=== PATIENT | male | born 1975 | race Caucasian/White ===

== ENCOUNTER 2016-12-22 10:56 | Inpatient (IN) | payer OTHER ==
[2016-12-22 14:47] VITALS: BMI 25.1
--- NOTE | 2016-12-22 15:57 | HP ---
COWS - Scale Resting Pulse: 0= [place] 80 or Below Sweatin=Flushed/Facial Moisture Restless Observation: 3= Extraneous Movement Pupil Size: 2= Moderately Dilated Bone or Joint Aches: 2= Severe Diffuse Aches Runny Nose/ Eye Tearin= Runny Nose/Eyes GI Upset > 30mins: 3= Vomiting/Diarrhea Tremor Observation: 2= Slight Tremor Visible Yawning Observation: 2= >3x During Session Anxiety or Irritability: 2=Irritable/Anxious Goose Flesh Skin: 0=Smooth Skin COWS Score: 20 Admission ROS BHS - HPI Chief Complaint: I NEED HELP TO STOP USING HEROIN Allergies/Adverse Reactions: Allergies Allergy/AdvReac Type Severity Reaction Status Date / Time No Known Allergies Allergy Verified 12/22/16 15:47 History of Present Illness: THIS 41 YEARS OLD MALE WITH HEROIN DEPENDENCE SEEKING HELP TO STOP USING DRUG, NEVER BEEN IN DETOX BEFORE LOW BACK PAIN, NICOTINE DEPENDENCE Exam Limitations: No Limitations - Ebola screening Have you traveled outside of the country in the last 21 days: No Have you had contact with anyone from an Ebola affected area: No Have you been sick,other than usual withdrawal symptoms: No - Review of Systems Constitutional: Chills, Loss of Appetite, Malaise, Night Sweats, Changes in sleep EENT: reports: Tearing, Nose Congestion Respiratory: reports: No Symptoms reported Cardiac: reports: Palpitations GI: reports: Diarrhea, Nausea, Vomiting, Abdominal cramping : reports: No Symptoms Reported Musculoskeletal: reports: Back Pain, Joint Pain, Muscle Pain, Joint Stiffness Neuro: reports: Headache, Tremors Endocrine: reports: No Symptoms Reported Hematology: reports: No Symptoms Reported Psychiatric: reports: No Sypmtoms Reported, Judgement Intact, Mood/Affect Appropiate, Orientated x3 Other Systems: Reviewed and Negative Patient History - Patient Medical History Hx Anemia: No Hx Asthma: No Hx Chronic Obstructive Pulmonary Disease (COPD): No Hx Cancer: No Hx Cardiac Disorders: No Hx Hypertension: No Hx Hypercholesterolemia: No Hx Pacemaker: No HX Cerebrovascular Accident: No Hx Seizures: No Hx Diabetes: No Hx Gastrointestinal Disorders: Yes (GERD) Hx Liver Disease: No Hx Genitourinary Disorders: No Hx Sexually Transmitted Disorders: No Hx Renal Disease (ESRD): No Hx Thyroid Disease: No Hx Human Immunodeficiency Virus (HIV): No (LAST 2015 NEGATIVE) Hx Hepatitis C: No Hx Depression: No Hx Suicide Attempt: No Hx Bipolar Disorder: No Hx Schizophrenia: No - Patient Surgical History Past Surgical History: No - PPD History Previous Implant?: Yes Documented Results: Negative w/o proof Implanted On Prior [facility] Admission?: No PPD to be Administered?: Yes - Smoking Cessation Smoking history: Current every day smoker Have you smoked in the past 12 months: Yes Aproximately how many cigarettes per day: 40 Hx Chewing Tobacco Use: No Initiated information on smoking cessation: Yes 'Breaking Loose' booklet given: 12/22/16 - Substance & Tx. History Hx Alcohol Use: No Hx Substance Use: Yes Substance Use Type: Heroin Hx Substance Use Treatment: No - Substances Abused Heroin Route: Inhalation Frequency: Daily Amount used: 8 bags Age of first use: 40 Date of Last Use: 12/21/16 Family Disease History - Family Disease History Family History: Denies Admission Physical Exam [facility] - Vital Signs Vital Signs: Vital Signs - 24 hr 12/22/16 14:45 Temperature 97.2 F L Pulse Rate 75 Respiratory 20 Rate Blood Pressure 134/74 - Physical General Appearance: Yes: Moderate Distress, Tremorous, Irritable, Sweating HEENTM: Yes: Normal ENT Inspection, Normocephalic, VIKTOR, Pharynx Normal Respiratory: Yes: Lungs Clear, Normal Breath Sounds, No Respiratory Distress Neck: Yes: Within Normal Limits, Supple, Trachea in good position Breast: Yes: Within Normal Limits Cardiology: Yes: Within Normal Limits, Regular Rhythm, Regular Rate, S1, S2 Abdominal: Yes: Within Normal Limits, Normal Bowel Sounds, Non Tender, Flat, Soft Genitourinary: Yes: Within Normal Limits Back: Yes: Muscle Spasm Musculoskeletal: Yes: full range of Motion, Back pain, Joint Stiffness, Muscle Pain Extremities: Yes: Normal Range of Motion, Tremors Neurological: Yes: chair springer II-XII NML intact, Alert, Motor Strength 5/5 Integumentary: Yes: Dry Lymphatic: Yes: Within Normal Limits - Diagnostic (1) Opioid dependence with withdrawal Current Visit: Yes Status: Acute (2) Low back pain Current Visit: Yes Status: Acute (3) Nicotine dependence Current Visit: Yes Status: Acute Cleared for Admission [facility] - Detox or Rehab [facility] Level of Care: Medically Managed Detox Regimen/Protocol: Methadone [facility] Breath Alcohol Content Breath Alcohol Content: 0 Urine Drug Screen - Results Drug Screen Negative: No Urine Drug Screen Results: OPI-Opiates
[2016-12-22] MEDS ORDERED: MAGNESIUM CITRATE 300 ML BOTTLE PO PRN (16:04)
[2016-12-22] MEDS ORDERED: MAG HYDROX/AL HYDROX/SIMETH 30 ML UNIT-DOSE CUP PO PRN (16:04)
[2016-12-22] MEDS ORDERED: P-EPHED 60MG/TRIPROLIDI 2.5MG TABLET PO PRN (16:04)
[2016-12-22] MEDS ORDERED: IBUPROFEN 400 MG TABLET (FP) PO PRN (16:04)
[2016-12-22] MEDS ORDERED: guaiFENesin/D-METHORPHAN HB 10 ML UNIT-DOSE CUPS PO PRN (16:04)
[2016-12-22] MEDS ORDERED: hydrOXYzine PAMOATE 50 MG CAPSULE (FP) PO PRN (16:04)
[2016-12-22] MEDS ORDERED: ACETAMINOPHEN 325 MG TABLET (FP) PO PRN (16:04)
[2016-12-22] MEDS ORDERED: MENTHOL/PHENOL 1 EACH UD MM PRN (16:04)
[2016-12-22] MEDS ORDERED: LOPERAMIDE HCL 2 MG CAPSULE PO PRN (16:04)
[2016-12-22] MEDS ORDERED: MAGNESIUM HYDROX 2400MG/30ML ORAL SUSPENSION 30 ML CUP PO PRN (16:04)
[2016-12-22] MEDS ORDERED: CYCLOBENZAPRINE HCL 10 MG TABLET (FP) PO PRN (16:07)
[2016-12-22] MEDS ORDERED: METHADONE HCL 10 MG TABLET (FOR DETOX USE ONLY) PO ONE ×2 (17:30→23:00)
[2016-12-22] MEDS: diazePAM 5 MG TABLET PO PRN ×2 (17:44→22:16)
[2016-12-22] MEDS: THIAMINE HCL 100 MG TABLET (FP) PO SCH (22:13)
[2016-12-22] MEDS: cloNIDine HCL 0.1 MG TABLET PO SCH (22:13)
[2016-12-22] MEDS: diphenhydrAMINE HCL 50 MG CAPSULE PO PRN (22:14)
[2016-12-22 22:24] LABS: URINE APPEARANCE CLEAR; URINE BILIRUBIN NEGATIVE (NEGATIVE); URINE BLOOD NEGATIVE (NEGATIVE); URINE COLOR STRAW; URINE GLUCOSE (UA) NEGATIVE (NEGATIVE); URINE KETONE NEGATIVE (NEGATIVE); URINE LEUK ESTERASE NEGATIVE (NEGATIVE); URINE NITRITE NEGATIVE (NEGATIVE); URINE PROTEIN NEGATIVE (NEGATIVE); URINE UROBILINOGEN NEGATIVE E.U./dl (0.2-1.0)
[2016-12-23] MEDS: diazePAM 5 MG TABLET PO PRN ×4 (06:04→22:08)
[2016-12-23] MEDS ORDERED: METHADONE HCL 10 MG TABLET (FOR DETOX USE ONLY) PO ONE (10:00)
[2016-12-23 10:03] LABS: MCH 29.4 pg (25.7-33.7); MCHC 33.4 g/dl (32.0-35.9); MEAN CELL VOLUME 87.9 fl (80-96); MEAN PLT VOLUME 7.8 fl (7.5-11.1); PLATELET COUNT 224 K/MM3 (134-434); RDW 12.5 % (11.9-15.9); WHITE BLOOD COUNT 6.4 K/mm3 (4.0-10.0)
[2016-12-23 10:14] LABS: ALBUMIN 3.5 g/dl (3.4-5.0); ALK PHOS 61 U/L (45-117); ANION GAP 8 (8-16); BILIRUBIN,TOTAL 0.4 mg/dL (0.2-1.0); CALCIUM 9.4 mg/dL (8.5-10.1); CO2 29 mmol/L (21-32); COCKROFT - GAULT 137.81; CREATININE 0.8 mg/dL (0.7-1.3); GLUCOSE,RANDOM 102 mg/dL (74-106); SGOT/AST 13 U/L (15-37); SGPT/ALT 25 U/L (12-78); TOT PROT 6.2 g/dl (6.4-8.2)
[2016-12-23] MEDS: cloNIDine HCL 0.1 MG TABLET PO SCH ×2 (10:23→22:08)
[2016-12-23] MEDS: PRENATAL VITAMINS W/ FOLIC ACID TABLET (FP) PO SCH (10:23)
--- NOTE | 2016-12-23 11:40 | EKG ---
Test Reason : Blood Pressure : / mmHG Vent. Rate : 062 BPM Atrial Rate : 062 BPM P-R Int : 142 ms QRS Dur : 082 ms QT Int : 402 ms P-R-T Axes : 046 060 048 degrees QTc Int : 408 ms NORMAL SINUS RHYTHM NORMAL ECG NO PREVIOUS ECGS AVAILABLE Confirmed by ZACK MARTINEZ, FLORES ([id number]) on 12/23/2016 11:40:38 AM Referred By: Confirmed By:FLORES DIXON MD
--- NOTE | 2016-12-23 11:51 | PN ---
BHS COWS - Scale Resting Pulse: 2= [place] 101-120 Sweatin= Chills/Flushing Restless Observation: 1= Difficult to Sit Still Pupil Size: 0= Normal to Room Light Bone or Joint Aches: 2= Severe Diffuse Aches Runny Nose/ Eye Tearin= Nasal Congestion GI Upset > 30mins: 1= Stomach Cramp Tremor Observation of Outstretched Hands: 2= Slight Tremor Visible Yawning Observation: 1= 1-2x During Session Anxiety or Irritability: 2=Irritable/Anxious Goose Flesh Skin: 3=Piloerection COWS Score: 16 BHS Progress Note (SOAP) Subjective: Body Aches, Fatigue, Tremors. Objective: PT. A & O X 2 (DISORIENTED ABOUT DAY /DATE). NO ACUTE DISTRESS. PT. DENIES CHEST PAIN. 12/23/16 11:49 Vital Signs Temperature 98.3 F 12/23/16 10:04 Pulse Rate 107 H 12/23/16 10:04 Respiratory Rate 18 12/23/16 10:04 Blood Pressure 130/82 12/23/16 10:04 O2 Sat by Pulse Oximetry (%) Laboratory Tests 12/22/16 12/23/16 12/23/16 21:30 07:00 07:00 WBC 6.4 RBC 4.86 Hgb 14.3 Hct 42.7 MCV 87.9 MCHC 33.4 RDW 12.5 Plt Count 224 MPV 7.8 Sodium 141 Potassium 4.5 Chloride 104 Carbon Dioxide 29 Anion Gap 8 BUN 13 Creatinine 0.8 Creat Clearance w eGFR > 60 Random Glucose 102 Calcium 9.4 Total Bilirubin 0.4 AST 13 L ALT 25 Alkaline Phosphatase 61 Total Protein 6.2 L Albumin 3.5 Urine Color Straw Urine Appearance Clear Urine pH 7.0 Urine Protein Negative Urine Glucose (UA) Negative Urine Ketones Negative Urine Blood Negative Urine Nitrite Negative Urine Bilirubin Negative Urine Urobilinogen Negative Ur Leukocyte Esterase Negative LABS NOTED. Assessment: 12/23/16 11:51 WITHDRAWAL SYMPTOMS. Plan: CONTINUE DETOX.
[2016-12-23] MEDS: THIAMINE HCL 100 MG TABLET (FP) PO SCH (22:08)
[2016-12-24] MEDS: diazePAM 5 MG TABLET PO PRN ×2 (05:45→10:05)
[2016-12-24] MEDS ORDERED: METHADONE HCL 5 MG TABLET (FOR DETOX USE ONLY) PO ONE (10:00)
[2016-12-24] MEDS: PRENATAL VITAMINS W/ FOLIC ACID TABLET (FP) PO SCH (10:04)
[2016-12-24] MEDS: cloNIDine HCL 0.1 MG TABLET PO SCH ×2 (10:04→22:42)
--- NOTE | 2016-12-24 13:25 | PN ---
S COWS - Scale Resting Pulse: 1= [place] 81-100 Sweatin= Chills/Flushing Restless Observation: 0= Sits Still Pupil Size: 0= Normal to Room Light Bone or Joint Aches: 2= Severe Diffuse Aches Runny Nose/ Eye Tearin= Runny Nose/Eyes GI Upset > 30mins: 2= Nausea/Diarrhea Tremor Observation of Outstretched Hands: 2= Slight Tremor Visible Yawning Observation: 1= 1-2x During Session Anxiety or Irritability: 2=Irritable/Anxious Goose Flesh Skin: 3=Piloerection COWS Score: 16 S Progress Note (SOAP) Subjective: Diarrhea, Tremors, Body Aches, Sweating. Objective: PT. A & O X 2 (DISORIENTED ABOUT DAY /DATE). PT. OBSERVED AMBULATING ON UNIT. NO ACUTE DISTRESS. 12/24/16 13:23 Vital Signs Temperature 98.6 F 12/24/16 10:03 Pulse Rate 97 H 12/24/16 10:03 Respiratory Rate 20 12/24/16 10:03 Blood Pressure 98/67 12/24/16 10:03 O2 Sat by Pulse Oximetry (%) Laboratory Tests 12/22/16 12/23/16 12/23/16 21:30 07:00 07:00 WBC 6.4 RBC 4.86 Hgb 14.3 Hct 42.7 MCV 87.9 MCHC 33.4 RDW 12.5 Plt Count 224 MPV 7.8 Sodium 141 Potassium 4.5 Chloride 104 Carbon Dioxide 29 Anion Gap 8 BUN 13 Creatinine 0.8 Creat Clearance w eGFR > 60 Random Glucose 102 Calcium 9.4 Total Bilirubin 0.4 AST 13 L ALT 25 Alkaline Phosphatase 61 Total Protein 6.2 L Albumin 3.5 Urine Color Straw Urine Appearance Clear Urine pH 7.0 Ur Specific [place] 1.015 Urine Protein Negative Urine Glucose (UA) Negative Urine Ketones Negative Urine Blood Negative Urine Nitrite Negative Urine Bilirubin Negative Urine Urobilinogen Negative Ur Leukocyte Esterase Negative RPR Titer 12/23/16 07:00 WBC RBC Hgb Hct MCV MCHC RDW Plt Count MPV Sodium Potassium Chloride Carbon Dioxide Anion Gap BUN Creatinine Creat Clearance w eGFR Random Glucose Calcium Total Bilirubin AST ALT Alkaline Phosphatase Total Protein Albumin Urine Color Urine Appearance Urine pH Ur Specific [place] Urine Protein Urine Glucose (UA) Urine Ketones Urine Blood Urine Nitrite Urine Bilirubin Urine Urobilinogen Ur Leukocyte Esterase RPR Titer Nonreactive LABS NOTED. Assessment: 12/24/16 13:25 WITHDRAWAL SYMPTOMS. Plan: CONTINUE DETOX. PRN IMMODIUM FOR DIARRHEA.
[2016-12-24] MEDS: THIAMINE HCL 100 MG TABLET (FP) PO SCH (22:42)
[2016-12-25] MEDS ORDERED: METHADONE HCL 5 MG TABLET (FOR DETOX USE ONLY) PO ONE (10:00)
[2016-12-25] MEDS: cloNIDine HCL 0.1 MG TABLET PO SCH ×2 (10:15→22:13)
[2016-12-25] MEDS: diazePAM 5 MG TABLET PO PRN (10:16)
[2016-12-25] MEDS: PRENATAL VITAMINS W/ FOLIC ACID TABLET (FP) PO SCH (10:16)
--- NOTE | 2016-12-25 11:57 | PN ---
BHS Progress Note (SOAP) Subjective: Body Aches, Diarrhea, Tremors, Interrupted sleep, Sweating. Objective: PT. A & O X 3, OBSERVED AMBULATING ON UNIT. NO ACUTE DISTRESS. 12/25/16 11:56 12/25/16 11:58 Vital Signs Temperature 98.4 F 12/25/16 09:57 Pulse Rate 83 12/25/16 09:57 Respiratory Rate 18 12/25/16 09:57 Blood Pressure 109/66 12/25/16 09:57 O2 Sat by Pulse Oximetry (%) Laboratory Tests 12/22/16 12/23/16 12/23/16 21:30 07:00 07:00 WBC 6.4 RBC 4.86 Hgb 14.3 Hct 42.7 MCV 87.9 MCHC 33.4 RDW 12.5 Plt Count 224 MPV 7.8 Sodium 141 Potassium 4.5 Chloride 104 Carbon Dioxide 29 Anion Gap 8 BUN 13 Creatinine 0.8 Creat Clearance w eGFR > 60 Random Glucose 102 Calcium 9.4 Total Bilirubin 0.4 AST 13 L ALT 25 Alkaline Phosphatase 61 Total Protein 6.2 L Albumin 3.5 Urine Color Straw Urine Appearance Clear Urine pH 7.0 Ur Specific [place] 1.015 Urine Protein Negative Urine Glucose (UA) Negative Urine Ketones Negative Urine Blood Negative Urine Nitrite Negative Urine Bilirubin Negative Urine Urobilinogen Negative Ur Leukocyte Esterase Negative RPR Titer 12/23/16 07:00 WBC RBC Hgb Hct MCV MCHC RDW Plt Count MPV Sodium Potassium Chloride Carbon Dioxide Anion Gap BUN Creatinine Creat Clearance w eGFR Random Glucose Calcium Total Bilirubin AST ALT Alkaline Phosphatase Total Protein Albumin Urine Color Urine Appearance Urine pH Ur Specific [place] Urine Protein Urine Glucose (UA) Urine Ketones Urine Blood Urine Nitrite Urine Bilirubin Urine Urobilinogen Ur Leukocyte Esterase RPR Titer Nonreactive LABS NOTED. Assessment: 12/25/16 11:58 WITHDRAWAL SYMPTOMS. Plan: CONTINUE DETOX.
[2016-12-25] MEDS: diphenhydrAMINE HCL 50 MG CAPSULE PO PRN (22:12)
[2016-12-25] MEDS: THIAMINE HCL 100 MG TABLET (FP) PO SCH (22:12)
[2016-12-26] MEDS ORDERED: METHADONE HCL 10 MG TABLET (FOR DETOX USE ONLY) PO ONE (10:00)
[2016-12-26] MEDS: cloNIDine HCL 0.1 MG TABLET PO SCH ×2 (10:04→22:12)
[2016-12-26] MEDS: PRENATAL VITAMINS W/ FOLIC ACID TABLET (FP) PO SCH (10:04)
--- NOTE | 2016-12-26 14:28 | PN ---
BHS Progress Note (SOAP) Subjective: Fatigue, Body Aches. Objective: PT. A & O X 3. NO ACUTE DISTRESS. 12/26/16 14:26 Vital Signs Temperature 98.6 F 12/26/16 13:03 Pulse Rate 75 12/26/16 13:03 Respiratory Rate 18 12/26/16 13:03 Blood Pressure 94/60 12/26/16 13:03 O2 Sat by Pulse Oximetry (%) Laboratory Tests 12/22/16 12/23/16 12/23/16 21:30 07:00 07:00 WBC 6.4 RBC 4.86 Hgb 14.3 Hct 42.7 MCV 87.9 MCHC 33.4 RDW 12.5 Plt Count 224 MPV 7.8 Sodium 141 Potassium 4.5 Chloride 104 Carbon Dioxide 29 Anion Gap 8 BUN 13 Creatinine 0.8 Creat Clearance w eGFR > 60 Random Glucose 102 Calcium 9.4 Total Bilirubin 0.4 AST 13 L ALT 25 Alkaline Phosphatase 61 Total Protein 6.2 L Albumin 3.5 Urine Color Straw Urine Appearance Clear Urine pH 7.0 Ur Specific [place] 1.015 Urine Protein Negative Urine Glucose (UA) Negative Urine Ketones Negative Urine Blood Negative Urine Nitrite Negative Urine Bilirubin Negative Urine Urobilinogen Negative Ur Leukocyte Esterase Negative RPR Titer 12/23/16 07:00 WBC RBC Hgb Hct MCV MCHC RDW Plt Count MPV Sodium Potassium Chloride Carbon Dioxide Anion Gap BUN Creatinine Creat Clearance w eGFR Random Glucose Calcium Total Bilirubin AST ALT Alkaline Phosphatase Total Protein Albumin Urine Color Urine Appearance Urine pH Ur Specific [place] Urine Protein Urine Glucose (UA) Urine Ketones Urine Blood Urine Nitrite Urine Bilirubin Urine Urobilinogen Ur Leukocyte Esterase RPR Titer Nonreactive LABS NOTED. Assessment: 12/26/16 14:27 WITHDRAWAL SYMPTOMS. Plan: CONTINUE DETOX. INCREASE PO FLUID INTAKE.
[2016-12-26 21:34] VITALS: TEMP 97.1
[2016-12-26] MEDS: THIAMINE HCL 100 MG TABLET (FP) PO SCH (22:11)
[2016-12-26] MEDS: diphenhydrAMINE HCL 50 MG CAPSULE PO PRN (22:12)
[2016-12-27] MEDS ORDERED: METHADONE HCL 5 MG TABLET (FOR DETOX USE ONLY) PO ONE (06:00)
[2016-12-27 06:39] VITALS: BP 101/65; PULSE 82
--- NOTE | 2016-12-27 11:39 | DS ---
[facility] Detox Discharge Summary Admission Date: 12/22/16 Discharge Date: 12/27/16 - History Present History: Opioid Dependence Pertinent Past History: GERD - Physical Exam Results Vital Signs: Vital Signs Temperature 97.1 F L 12/27/16 06:38 Pulse Rate 82 12/27/16 06:38 Respiratory Rate 18 12/27/16 06:38 Blood Pressure 101/65 12/27/16 06:38 O2 Sat by Pulse Oximetry (%) Pertinent Admission Physical Exam Findings: Withdrawal symptoms Laboratory Tests 12/22/16 12/23/16 12/23/16 21:30 07:00 07:00 WBC 6.4 RBC 4.86 Hgb 14.3 Hct 42.7 MCV 87.9 MCHC 33.4 RDW 12.5 Plt Count 224 MPV 7.8 Sodium 141 Potassium 4.5 Chloride 104 Carbon Dioxide 29 Anion Gap 8 BUN 13 Creatinine 0.8 Creat Clearance w eGFR > 60 Random Glucose 102 Calcium 9.4 Total Bilirubin 0.4 AST 13 L ALT 25 Alkaline Phosphatase 61 Total Protein 6.2 L Albumin 3.5 Urine Color Straw Urine Appearance Clear Urine pH 7.0 Ur Specific [place] 1.015 Urine Protein Negative Urine Glucose (UA) Negative Urine Ketones Negative Urine Blood Negative Urine Nitrite Negative Urine Bilirubin Negative Urine Urobilinogen Negative Ur Leukocyte Esterase Negative RPR Titer 12/23/16 07:00 WBC RBC Hgb Hct MCV MCHC RDW Plt Count MPV Sodium Potassium Chloride Carbon Dioxide Anion Gap BUN Creatinine Creat Clearance w eGFR Random Glucose Calcium Total Bilirubin AST ALT Alkaline Phosphatase Total Protein Albumin Urine Color Urine Appearance Urine pH Ur Specific [place] Urine Protein Urine Glucose (UA) Urine Ketones Urine Blood Urine Nitrite Urine Bilirubin Urine Urobilinogen Ur Leukocyte Esterase RPR Titer Nonreactive Labs noted - Treatment Hospital Course: Detox Protocol Followed, Detoxed Safely, Responded well, Discharged Condition Good - Medication Discharge Medications: Ambulatory Orders NK [No Known Home Medication] 12/22/16 - Diagnosis (1) Nicotine dependence Status: Chronic (2) Opioid dependence with withdrawal Status: Acute (3) GERD (gastroesophageal reflux disease) Status: Chronic - AMA Did Patient Leave Against Medical Advice: No
== END 2016-12-27 08:45 | disposition home or self-care (01) | DRG 773 ==
LOC: YASAS 10:56 → Y3N 16:35
PROVIDERS: ADMIT Internal Medicine; ATTEND Internal Medicine
PROC: HZ2ZZZZ Detoxification Services for Substance Abuse Treatment (ICD-10-PCS; principal; 2016-12-22)
DX: F11.23 Opioid dependence with withdrawal (principal); F17.210 Nicotine dependence, cigarettes, uncomplicated; K21.9 Gastro-esophageal reflux disease without esophagitis; M54.5 Low back pain
CPT/HCPCS: 36415; 80053; 81003; 85027; 86593; 93005; 93010

== ENCOUNTER 2017-08-18 10:14 | Inpatient (IN) | payer OTHER ==
[2017-08-18 11:40] VITALS: BMI 22.9
--- NOTE | 2017-08-18 14:04 | HP ---
COWS - Scale Resting Pulse: 4= [place] > 121 Sweatin= Chills/Flushing Restless Observation: 0= Sits Still Pupil Size: 0= Normal to Room Light Bone or Joint Aches: 4=Acute Joint/Muscle Pain Runny Nose/ Eye Tearin= Nasal Congestion GI Upset > 30mins: 0= None Tremor Observation: 1= Tremor [place], Not Seen Yawning Observation: 0= None Anxiety or Irritability: 2=Irritable/Anxious Goose Flesh Skin: 0=Smooth Skin COWS Score: 13 Admission [facility] - [facility] Chief Complaint: WITHDRAWAL SX FROM HEROIN Allergies/Adverse Reactions: Allergies Allergy/AdvReac Type Severity Reaction Status Date / Time No Known Allergies Allergy Verified 08/18/17 12:14 History of Present Illness: 42 Y/O MALE WITH A HX OF HEROIN DEPENDENCE SEEKING DETOX [place] Exam Limitations: No Limitations - Ebola screening Have you traveled outside of the country in the last 21 days: No Have you had contact with anyone from an Ebola affected area: No Have you been sick,other than usual withdrawal symptoms: No - Review of Systems Constitutional: Chills, Loss of Appetite, Night Sweats, Changes in sleep EENT: reports: Tearing, Nose Congestion, Dental Problems (MISSING TEETH) Respiratory: reports: No Symptoms reported Cardiac: reports: Lightheadedness GI: reports: Constipated, Diarrhea, Nausea, Poor Appetite, Vomiting : reports: No Symptoms Reported Musculoskeletal: reports: Joint Pain, Muscle Pain Integumentary: reports: Bruising (BOTH ELBOWS WITH IVD INJ SITES) Neuro: reports: Headache, Numbness, Tingling, Dizziness Endocrine: reports: No Symptoms Reported Hematology: reports: No Symptoms Reported Psychiatric: reports: Orientated x3, Anxious Other Systems: Reviewed and Negative Patient History - Patient Medical History Hx Anemia: No Hx Asthma: No Hx Chronic Obstructive Pulmonary Disease (COPD): No Hx Cancer: No Hx Cardiac Disorders: No Hx Hypertension: No Hx Hypercholesterolemia: No Hx Pacemaker: No HX Cerebrovascular Accident: No Hx Seizures: No Hx Diabetes: No Hx Gastrointestinal Disorders: Yes (NEXIUM IN THE PAST) Hx Liver Disease: No Hx Genitourinary Disorders: No Hx Sexually Transmitted Disorders: No Hx Renal Disease (ESRD): No Hx Thyroid Disease: No Hx Human Immunodeficiency Virus (HIV): No (LAST 2015 NEGATIVE) Hx Hepatitis C: No (negative) Hx Depression: No Hx Suicide Attempt: No Hx Bipolar Disorder: No Hx Schizophrenia: No - Patient Surgical History Past Surgical History: No Hx Neurologic Surgery: No Hx Cataract Extraction: No Hx Cardiac Surgery: No Hx Lung Surgery: No Hx Breast Surgery: No Hx Breast Biopsy: Yes (lT CHEST BENIGN 2004) Hx Abdominal Surgery: No Hx Appendectomy: No Hx Cholecystectomy: No Hx Genitourinary Surgery: No Hx Orthopedic Surgery: No Anesthesia Reaction: No - PPD History Previous Implant?: Yes Documented Results: Negative w/proof Implanted On Prior [facility] Admission?: Yes Date: 12/24/16 PPD to be Administered?: No - Reproductive History Patient is a Female of Child Bearing Age (11 -55 yrs old): No (MALE) - Smoking Cessation Smoking history: Current every day smoker Have you smoked in the past 12 months: Yes Aproximately how many cigarettes per day: 2 Hx Chewing Tobacco Use: No Initiated information on smoking cessation: Yes 'Breaking Loose' booklet given: 08/18/17 - Substance & Tx. History Hx Alcohol Use: No (DENIES) Hx Substance Use: Yes (HEROIN) Substance Use Type: Heroin Hx Substance Use Treatment: Yes (LAST TX AT [facility]) - Substances Abused Heroin Route: Inh/Inj Frequency: Daily Amount used: 5-6 bags Age of first use: 39 Date of Last Use: 08/18/17 Family Disease History - Family Disease History Family History: Denies Admission Physical Exam BHS - Vital Signs Vital Signs: Vital Signs - 24 hr 08/18/17 11:30 Temperature 101.6 F H Pulse Rate 126 H Respiratory 20 Rate Blood Pressure 142/86 - Physical General Appearance: Yes: Moderate Distress, Irritable, Anxious HEENTM: Yes: EOMI, Normocephalic, VIKTOR, Pharynx Normal Respiratory: Yes: Chest Non-Tender, Lungs Clear, Normal Breath Sounds, No Respiratory Distress Neck: Yes: No masses,lesions,Nodules, Supple, Trachea in good position Breast: Yes: Breast Exam Deferred Cardiology: Yes: Regular Rhythm, Regular Rate, S1, S2 Abdominal: Yes: Normal Bowel Sounds, Non Tender, Flat, Soft Genitourinary: Yes: Other (N/C) Back: Yes: Within Normal Limits Musculoskeletal: Yes: full range of Motion, Gait Steady Extremities: Yes: Normal Range of Motion, Non-Tender Neurological: Yes: research and development engineer II-XII NML intact, Fully Oriented, Alert, Motor Strength 5/5 Integumentary: Yes: Dry, Warm, Track [place] (BOTH ELBOWS--NO SWELLING OR WARMTH, SLIGHT REDNESS TO SITES) Lymphatic: Yes: Within Normal Limits - Diagnostic (1) Nicotine dependence Current Visit: Yes Status: Acute Qualifiers: Nicotine product type: cigarettes Substance use status: in withdrawal Qualified Code(s): F17.213 - Nicotine dependence, cigarettes, with withdrawal (2) Opioid dependence with withdrawal Current Visit: Yes Status: Acute (3) GERD (gastroesophageal reflux disease) Current Visit: Yes Status: Chronic Qualifiers: Esophagitis presence: esophagitis presence not specified Qualified Code(s) : K21.9 - Gastro-esophageal reflux disease without esophagitis (4) Low back pain Current Visit: Yes Status: Chronic Qualifiers: Chronicity: chronic Cleared for Admission [facility] - Detox or Rehab [facility] Level of Care: Medically Managed Detox Regimen/Protocol: Methadone [facility] Breath Alcohol Content Breath Alcohol Content: 0 Urine Drug Screen - Results Drug Screen Negative: No Urine Drug Screen Results: OPI-Opiates, OXY-Oxycodone
[2017-08-18] MEDS ORDERED: ACETAMINOPHEN 325 MG TABLET (FP) PO PRN (14:17)
[2017-08-18] MEDS ORDERED: NICOTINE POLACRILEX 2 MG GUM BUC PRN (14:17)
[2017-08-18] MEDS ORDERED: MENTHOL/PHENOL 1 EACH UD MM PRN (14:17)
[2017-08-18] MEDS ORDERED: IBUPROFEN 400 MG TABLET (FP) PO PRN (14:17)
[2017-08-18] MEDS ORDERED: MAGNESIUM HYDROX 2400MG/30ML ORAL SUSPENSION 30 ML CUP PO PRN (14:17)
[2017-08-18] MEDS ORDERED: hydrOXYzine PAMOATE 50 MG CAPSULE (FP) PO PRN (14:17)
[2017-08-18] MEDS ORDERED: MAG HYDROX/AL HYDROX/SIMETH 30 ML UNIT-DOSE CUP PO PRN (14:17)
[2017-08-18] MEDS ORDERED: guaiFENesin/D-METHORPHAN HB 10 ML UNIT-DOSE CUPS PO PRN (14:17)
[2017-08-18] MEDS ORDERED: MAGNESIUM CITRATE 300 ML BOTTLE PO PRN (14:17)
[2017-08-18] MEDS ORDERED: P-EPHED 60MG/TRIPROLIDI 2.5MG TABLET PO PRN (14:17)
[2017-08-18] MEDS ORDERED: LOPERAMIDE HCL 2 MG CAPSULE PO PRN (14:17)
[2017-08-18] MEDS ORDERED: METHADONE HCL 10 MG TABLET (FOR DETOX USE ONLY) PO ONE ×2 (14:30→23:00)
[2017-08-18] MEDS: diazePAM 5 MG TABLET PO PRN ×2 (15:43→22:02)
[2017-08-18] MEDS: NICOTINE 14 MG/24 HOURS TOPICAL PATCH TD SCH (15:44)
[2017-08-18] MEDS: THIAMINE HCL 100 MG TABLET (FP) PO SCH (22:01)
[2017-08-18 23:38] LABS: URINE APPEARANCE CLEAR; URINE BILIRUBIN NEGATIVE (NEGATIVE); URINE BLOOD NEGATIVE (NEGATIVE); URINE COLOR YELLOW; URINE GLUCOSE (UA) NEGATIVE (NEGATIVE); URINE KETONE NEGATIVE (NEGATIVE); URINE LEUK ESTERASE NEGATIVE (NEGATIVE); URINE NITRITE NEGATIVE (NEGATIVE); URINE PROTEIN NEGATIVE (NEGATIVE); URINE UROBILINOGEN NEGATIVE mg/dL (0.2-1.0)
[2017-08-19] MEDS ORDERED: METHADONE HCL 10 MG TABLET (FOR DETOX USE ONLY) PO ONE (10:00)
[2017-08-19 10:17] LABS: HEMATOCRIT 39.7 % (35.4-49); HEMOGLOBIN 12.9 GM/dL (11.7-16.9); MCH 27.6 pg (25.7-33.7); MCHC 32.6 g/dl (32.0-35.9); MEAN CELL VOLUME 84.7 fl (80-96); MEAN PLT VOLUME 7.7 fl (7.5-11.1); PLATELET COUNT 273 K/MM3 (134-434); RBC 4.69 M/mm3 (4.00-5.60); RDW 12.5 % (11.9-15.9); WHITE BLOOD COUNT 8.8 K/mm3 (4.0-10.0)
[2017-08-19 10:37] LABS: ALBUMIN 3.6 g/dl (3.4-5.0); ANION GAP 7 (8-16); BLOOD UREA NITROGEN 11 mg/dL (7-18); CALCIUM 8.7 mg/dL (8.5-10.1); CHLORIDE 97 mmol/L (98-107); CO2 31 mmol/L (21-32); GLUCOSE,RANDOM 108 mg/dL (74-106); POTASSIUM 4.5 mmol/L (3.5-5.1); SGOT/AST 11 U/L (15-37); SGPT/ALT 21 U/L (12-78); SODIUM 135 mmol/L (136-145)
[2017-08-19 10:39] LABS: ALK PHOS 67 U/L (45-117); BILIRUBIN,TOTAL 0.5 mg/dL (0.2-1.0); TOT PROT 7.3 g/dl (6.4-8.2)
[2017-08-19] MEDS: PRENATAL VITAMINS W/ FOLIC ACID TABLET (FP) PO SCH (11:00)
[2017-08-19] MEDS: diazePAM 5 MG TABLET PO PRN ×3 (11:02→22:15)
--- NOTE | 2017-08-19 11:06 | EKG ---
Test Reason : Blood Pressure : / mmHG Vent. Rate : 096 BPM Atrial Rate : 096 BPM P-R Int : 138 ms QRS Dur : 074 ms QT Int : 330 ms P-R-T Axes : 042 038 043 degrees QTc Int : 416 ms NORMAL SINUS RHYTHM NORMAL ECG WHEN COMPARED WITH ECG OF 23-MAY-2017 14:52, NO SIGNIFICANT CHANGE WAS FOUND Confirmed by CARSON AYERS MD ([id number]) on 08/19/2017 11:05:39 AM Referred By: Confirmed By:CARSON AYERS MD
[2017-08-19] MEDS: NICOTINE 14 MG/24 HOURS TOPICAL PATCH TD SCH (11:26)
--- NOTE | 2017-08-19 14:42 | PN ---
BHS COWS - Scale Resting Pulse: 1= [place] 81-100 Sweatin= Chills/Flushing Restless Observation: 3= Extraneous Movement Pupil Size: 2= Moderately Dilated Bone or Joint Aches: 4=Acute Joint/Muscle Pain Runny Nose/ Eye Tearin= Nasal Congestion GI Upset > 30mins: 1= Stomach Cramp Tremor Observation of Outstretched Hands: 1= Tremor [place], Not Seen Yawning Observation: 1= 1-2x During Session Anxiety or Irritability: 2=Irritable/Anxious Goose Flesh Skin: 0=Smooth Skin COWS Score: 17 S Progress Note (SOAP) Subjective: ANXIETY,SWEATS,BODY ACHES, INTERMITTENT SLEEP. Objective: 08/19/17 14:41 Vital Signs Temperature 98.4 F 08/19/17 09:55 Pulse Rate 94 H 08/19/17 09:55 Respiratory Rate 18 08/19/17 09:55 Blood Pressure 123/71 08/19/17 09:55 O2 Sat by Pulse Oximetry (%) Laboratory Last Values WBC 8.8 K/mm3 (4.0-10.0) D 08/19/17 06:00 RBC 4.69 M/mm3 (4.00-5.60) 08/19/17 06:00 Hgb 12.9 GM/dL (11.7-16.9) D 08/19/17 06:00 Hct 39.7 % (35.4-49) 08/19/17 06:00 MCV 84.7 fl (80-96) 08/19/17 06:00 MCH 27.6 pg (25.7-33.7) 08/19/17 06:00 MCHC 32.6 g/dl (32.0-35.9) 08/19/17 06:00 RDW 12.5 % (11.9-15.9) 08/19/17 06:00 Plt Count 273 K/MM3 (134-434) 08/19/17 06:00 MPV 7.7 fl (7.5-11.1) 08/19/17 06:00 Sodium 135 mmol/L (136-145) L 08/19/17 06:00 Potassium 4.5 mmol/L (3.5-5.1) 08/19/17 06:00 Chloride 97 mmol/L (98-107) L 08/19/17 06:00 Carbon Dioxide 31 mmol/L (21-32) 08/19/17 06:00 Anion Gap 7 (8-16) L 08/19/17 06:00 BUN 11 mg/dL (7-18) 08/19/17 06:00 Creatinine 1.0 mg/dL (0.7-1.3) 08/19/17 06:00 Creat Clearance w eGFR > 60 (>60) 08/19/17 06:00 Random Glucose 108 mg/dL (74-106) H 08/19/17 06:00 Calcium 8.7 mg/dL (8.5-10.1) 08/19/17 06:00 Total Bilirubin 0.5 mg/dL (0.2-1.0) D 08/19/17 06:00 AST 11 U/L (15-37) L 08/19/17 06:00 ALT 21 U/L (12-78) 08/19/17 06:00 Alkaline Phosphatase 67 U/L (45-117) 08/19/17 06:00 Total Protein 7.3 g/dl (6.4-8.2) 08/19/17 06:00 Albumin 3.6 g/dl (3.4-5.0) 08/19/17 06:00 Urine Color Yellow 08/18/17 23:25 Urine Appearance Clear 08/18/17 23:25 Urine pH 5.0 (5.0-8.0) 08/18/17 23:25 Ur Specific [place] 1.020 (1.001-1.035) 08/18/17 23:25 Urine Protein Negative (NEGATIVE) 08/18/17 23:25 Urine Glucose (UA) Negative (NEGATIVE) 08/18/17 23:25 Urine Ketones Negative (NEGATIVE) 08/18/17 23:25 Urine Blood Negative (NEGATIVE) 08/18/17 23:25 Urine Nitrite Negative (NEGATIVE) 08/18/17 23:25 Urine Bilirubin Negative (NEGATIVE) 08/18/17 23:25 Urine Urobilinogen Negative mg/dL (0.2-1.0) 08/18/17 23:25 Ur Leukocyte Esterase Negative (NEGATIVE) 08/18/17 23:25 RPR Titer Nonreactive (NONREACTIVE) 08/19/17 06:00 Assessment: 08/19/17 14:41 WITHDRAWAL SX Plan: CONTINUE DETOX [facility] DIRECTED
[2017-08-19] MEDS: CYCLOBENZAPRINE HCL 10 MG TABLET (FP) PO SCH ×2 (15:50→22:15)
[2017-08-19] MEDS: THIAMINE HCL 100 MG TABLET (FP) PO SCH (22:15)
[2017-08-20] MEDS: CYCLOBENZAPRINE HCL 10 MG TABLET (FP) PO SCH ×3 (05:59→22:22)
[2017-08-20] MEDS: diazePAM 5 MG TABLET PO PRN ×4 (05:59→22:22)
[2017-08-20] MEDS: PRENATAL VITAMINS W/ FOLIC ACID TABLET (FP) PO SCH (09:40)
[2017-08-20] MEDS: NICOTINE 14 MG/24 HOURS TOPICAL PATCH TD SCH (09:41)
[2017-08-20] MEDS ORDERED: METHADONE HCL 5 MG TABLET (FOR DETOX USE ONLY) PO ONE (10:00)
--- NOTE | 2017-08-20 17:09 | PN ---
BHS COWS - Scale Resting Pulse: 1= [place] 81-100 Sweatin= Chills/Flushing Restless Observation: 3= Extraneous Movement Pupil Size: 0= Normal to Room Light Bone or Joint Aches: 4=Acute Joint/Muscle Pain Runny Nose/ Eye Tearin= Runny Nose/Eyes GI Upset > 30mins: 1= Stomach Cramp Tremor Observation of Outstretched Hands: 1= Tremor [place], Not Seen Yawning Observation: 1= 1-2x During Session Anxiety or Irritability: 1=Feels Anxious/Irritable Goose Flesh Skin: 0=Smooth Skin COWS Score: 15 BHS Progress Note (SOAP) Subjective: ANXIETY,SWEATS,FATIGUE. Objective: 08/20/17 17:08 Vital Signs Temperature 97.6 F 08/20/17 13:11 Pulse Rate 93 H 08/20/17 13:11 Respiratory Rate 20 08/20/17 13:11 Blood Pressure 105/71 08/20/17 13:11 O2 Sat by Pulse Oximetry (%) Laboratory Last Values WBC 8.8 K/mm3 (4.0-10.0) D 08/19/17 06:00 RBC 4.69 M/mm3 (4.00-5.60) 08/19/17 06:00 Hgb 12.9 GM/dL (11.7-16.9) D 08/19/17 06:00 Hct 39.7 % (35.4-49) 08/19/17 06:00 MCV 84.7 fl (80-96) 08/19/17 06:00 MCH 27.6 pg (25.7-33.7) 08/19/17 06:00 MCHC 32.6 g/dl (32.0-35.9) 08/19/17 06:00 RDW 12.5 % (11.9-15.9) 08/19/17 06:00 Plt Count 273 K/MM3 (134-434) 08/19/17 06:00 MPV 7.7 fl (7.5-11.1) 08/19/17 06:00 Sodium 135 mmol/L (136-145) L 08/19/17 06:00 Potassium 4.5 mmol/L (3.5-5.1) 08/19/17 06:00 Chloride 97 mmol/L (98-107) L 08/19/17 06:00 Carbon Dioxide 31 mmol/L (21-32) 08/19/17 06:00 Anion Gap 7 (8-16) L 08/19/17 06:00 BUN 11 mg/dL (7-18) 08/19/17 06:00 Creatinine 1.0 mg/dL (0.7-1.3) 08/19/17 06:00 Creat Clearance w eGFR > 60 (>60) 08/19/17 06:00 Random Glucose 108 mg/dL (74-106) H 08/19/17 06:00 Calcium 8.7 mg/dL (8.5-10.1) 08/19/17 06:00 Total Bilirubin 0.5 mg/dL (0.2-1.0) D 08/19/17 06:00 AST 11 U/L (15-37) L 08/19/17 06:00 ALT 21 U/L (12-78) 08/19/17 06:00 Alkaline Phosphatase 67 U/L (45-117) 08/19/17 06:00 Total Protein 7.3 g/dl (6.4-8.2) 08/19/17 06:00 Albumin 3.6 g/dl (3.4-5.0) 08/19/17 06:00 Urine Color Yellow 08/18/17 23:25 Urine Appearance Clear 08/18/17 23:25 Urine pH 5.0 (5.0-8.0) 08/18/17 23:25 Ur Specific [place] 1.020 (1.001-1.035) 08/18/17 23:25 Urine Protein Negative (NEGATIVE) 08/18/17 23:25 Urine Glucose (UA) Negative (NEGATIVE) 08/18/17 23:25 Urine Ketones Negative (NEGATIVE) 08/18/17 23:25 Urine Blood Negative (NEGATIVE) 08/18/17 23:25 Urine Nitrite Negative (NEGATIVE) 08/18/17 23:25 Urine Bilirubin Negative (NEGATIVE) 08/18/17 23:25 Urine Urobilinogen Negative mg/dL (0.2-1.0) 08/18/17 23:25 Ur Leukocyte Esterase Negative (NEGATIVE) 08/18/17 23:25 RPR Titer Nonreactive (NONREACTIVE) 08/19/17 06:00 Assessment: 08/20/17 17:09 WITHDRAWAL SX Plan: CONTINUE DETOX INCREASE PO FLUIDS.
[2017-08-20] MEDS: THIAMINE HCL 100 MG TABLET (FP) PO SCH (22:22)
[2017-08-21] MEDS: CYCLOBENZAPRINE HCL 10 MG TABLET (FP) PO SCH ×3 (05:42→22:39)
[2017-08-21] MEDS ORDERED: METHADONE HCL 5 MG TABLET (FOR DETOX USE ONLY) PO ONE (10:00)
[2017-08-21] MEDS: diazePAM 5 MG TABLET PO PRN (10:38)
[2017-08-21] MEDS: PRENATAL VITAMINS W/ FOLIC ACID TABLET (FP) PO SCH (10:38)
[2017-08-21] MEDS: NICOTINE 14 MG/24 HOURS TOPICAL PATCH TD SCH (10:39)
--- NOTE | 2017-08-21 15:29 | PN ---
BHS Progress Note (SOAP) Subjective: Sweating, Interrupted Sleep, H/A. Objective: PT. A & O X 3, OBSERVED AMBULATING ON UNIT. NO ACUTE DISTRESS. 08/21/17 15:28 Vital Signs Temperature 97.2 F L 08/21/17 13:26 Pulse Rate 93 H 08/21/17 13:26 Respiratory Rate 20 08/21/17 13:26 Blood Pressure 106/71 08/21/17 13:26 O2 Sat by Pulse Oximetry (%) Laboratory Tests 08/18/17 08/19/17 08/19/17 23:25 06:00 06:00 WBC 8.8 D RBC 4.69 Hgb 12.9 D Hct 39.7 MCV 84.7 MCH 27.6 MCHC 32.6 RDW 12.5 Plt Count 273 MPV 7.7 Sodium 135 L Potassium 4.5 Chloride 97 L Carbon Dioxide 31 Anion Gap 7 L BUN 11 Creatinine 1.0 Creat Clearance w eGFR > 60 Random Glucose 108 H Calcium 8.7 Total Bilirubin 0.5 D AST 11 L ALT 21 Alkaline Phosphatase 67 Total Protein 7.3 Albumin 3.6 Urine Color Yellow Urine Appearance Clear Urine pH 5.0 Ur Specific [place] 1.020 Urine Protein Negative Urine Glucose (UA) Negative Urine Ketones Negative Urine Blood Negative Urine Nitrite Negative Urine Bilirubin Negative Urine Urobilinogen Negative Ur Leukocyte Esterase Negative RPR Titer 08/19/17 06:00 WBC RBC Hgb Hct MCV MCH MCHC RDW Plt Count MPV Sodium Potassium Chloride Carbon Dioxide Anion Gap BUN Creatinine Creat Clearance w eGFR Random Glucose Calcium Total Bilirubin AST ALT Alkaline Phosphatase Total Protein Albumin Urine Color Urine Appearance Urine pH Ur Specific [place] Urine Protein Urine Glucose (UA) Urine Ketones Urine Blood Urine Nitrite Urine Bilirubin Urine Urobilinogen Ur Leukocyte Esterase RPR Titer Nonreactive LABS NOTED. Assessment: 08/21/17 15:28 WITHDRAWAL SYMPTOMS. Plan: CONTINUE DETOX.
[2017-08-21] MEDS: THIAMINE HCL 100 MG TABLET (FP) PO SCH (22:39)
[2017-08-22] MEDS: CYCLOBENZAPRINE HCL 10 MG TABLET (FP) PO SCH ×3 (05:24→22:25)
[2017-08-22] MEDS ORDERED: METHADONE HCL 10 MG TABLET (FOR DETOX USE ONLY) PO ONE (10:00)
[2017-08-22] MEDS: PRENATAL VITAMINS W/ FOLIC ACID TABLET (FP) PO SCH (10:33)
[2017-08-22] MEDS: NICOTINE 14 MG/24 HOURS TOPICAL PATCH TD SCH (10:33)
--- NOTE | 2017-08-22 14:24 | PN ---
BHS Progress Note (SOAP) Subjective: Fatigue, Body Aches, Sweating. Objective: PT A & O X 3, OBSERVED AMBULATING ON UNIT. NO ACUTE DISTRESS. 08/22/17 14:23 Vital Signs Temperature 98.3 F 08/22/17 13:54 Pulse Rate 94 H 08/22/17 13:54 Respiratory Rate 20 08/22/17 13:54 Blood Pressure 109/94 08/22/17 13:54 O2 Sat by Pulse Oximetry (%) Laboratory Tests 08/18/17 08/19/17 08/19/17 23:25 06:00 06:00 WBC 8.8 D RBC 4.69 Hgb 12.9 D Hct 39.7 MCV 84.7 MCH 27.6 MCHC 32.6 RDW 12.5 Plt Count 273 MPV 7.7 Sodium 135 L Potassium 4.5 Chloride 97 L Carbon Dioxide 31 Anion Gap 7 L BUN 11 Creatinine 1.0 Creat Clearance w eGFR > 60 Random Glucose 108 H Calcium 8.7 Total Bilirubin 0.5 D AST 11 L ALT 21 Alkaline Phosphatase 67 Total Protein 7.3 Albumin 3.6 Urine Color Yellow Urine Appearance Clear Urine pH 5.0 Ur Specific [place] 1.020 Urine Protein Negative Urine Glucose (UA) Negative Urine Ketones Negative Urine Blood Negative Urine Nitrite Negative Urine Bilirubin Negative Urine Urobilinogen Negative Ur Leukocyte Esterase Negative RPR Titer 08/19/17 06:00 WBC RBC Hgb Hct MCV MCH MCHC RDW Plt Count MPV Sodium Potassium Chloride Carbon Dioxide Anion Gap BUN Creatinine Creat Clearance w eGFR Random Glucose Calcium Total Bilirubin AST ALT Alkaline Phosphatase Total Protein Albumin Urine Color Urine Appearance Urine pH Ur Specific [place] Urine Protein Urine Glucose (UA) Urine Ketones Urine Blood Urine Nitrite Urine Bilirubin Urine Urobilinogen Ur Leukocyte Esterase RPR Titer Nonreactive LABS NOTED. Assessment: 08/22/17 14:23 WITHDRAWAL SYMPTOMS. Plan: CONTINUE DETOX.
[2017-08-22] MEDS: THIAMINE HCL 100 MG TABLET (FP) PO SCH (22:25)
[2017-08-23] MEDS: CYCLOBENZAPRINE HCL 10 MG TABLET (FP) PO SCH (05:28)
[2017-08-23] MEDS ORDERED: METHADONE HCL 5 MG TABLET (FOR DETOX USE ONLY) PO ONE (06:00)
[2017-08-23 09:18] VITALS: BP 118/75; PULSE 96; TEMP 96.2
--- NOTE | 2017-08-23 13:27 | DS ---
[facility] Detox Discharge Summary Admission Date: 08/18/17 Discharge Date: 08/23/17 - History Pertinent Past History: GERD LOW BACK PAIN - Physical Exam Results Vital Signs: Vital Signs Temperature 96.2 F L 08/23/17 09:16 Pulse Rate 96 H 08/23/17 09:16 Respiratory Rate 18 08/23/17 09:16 Blood Pressure 118/75 08/23/17 09:16 O2 Sat by Pulse Oximetry (%) Pertinent Admission Physical Exam Findings: WITHDRAWAL SX - Treatment Hospital Course: Detox Protocol Followed, Detoxed Safely, Responded well, Discharged Condition Good, Rehab Referral Accepted Patient has Accepted a Rehab Referral to: OUTPATIENT REHAB - Medication Discharge Medications: Ambulatory Orders NK [No Known Home Medication] 12/22/16 - Diagnosis (1) Nicotine dependence Status: Acute Qualifiers: Nicotine product type: cigarettes Substance use status: in withdrawal Qualified Code(s): F17.213 - Nicotine dependence, cigarettes, with withdrawal (2) Opioid dependence with withdrawal Status: Acute (3) GERD (gastroesophageal reflux disease) Status: Chronic Qualifiers: Esophagitis presence: esophagitis presence not specified Qualified Code(s) : K21.9 - Gastro-esophageal reflux disease without esophagitis - AMA Did Patient Leave Against Medical Advice: No
--- NOTE | 2017-08-23 13:31 | DS ---
[facility] Detox Discharge Summary Admission Date: 08/18/17 Discharge Date: 08/23/17 - Physical Exam Results Vital Signs: Vital Signs Temperature 96.2 F L 08/23/17 09:16 Pulse Rate 96 H 08/23/17 09:16 Respiratory Rate 18 08/23/17 09:16 Blood Pressure 118/75 08/23/17 09:16 O2 Sat by Pulse Oximetry (%) - Medication Discharge Medications: Ambulatory Orders NK [No Known Home Medication] 12/22/16 - Diagnosis (1) Nicotine dependence Status: Acute Qualifiers: Nicotine product type: cigarettes Substance use status: in withdrawal Qualified Code(s): F17.213 - Nicotine dependence, cigarettes, with withdrawal (2) Opioid dependence with withdrawal Status: Acute (3) GERD (gastroesophageal reflux disease) Status: Chronic Qualifiers: Esophagitis presence: esophagitis presence not specified Qualified Code(s) : K21.9 - Gastro-esophageal reflux disease without esophagitis
== END 2017-08-23 08:48 | disposition home or self-care (01) | DRG 773 ==
LOC: YASAS 10:14 → Y3N 14:04
PROVIDERS: ADMIT Internal Medicine; ATTEND Internal Medicine
PROC: HZ2ZZZZ Detoxification Services for Substance Abuse Treatment (ICD-10-PCS; principal; 2017-08-18)
DX: F11.23 Opioid dependence with withdrawal (principal); F17.213 Nicotine dependence, cigarettes, with withdrawal; K21.9 Gastro-esophageal reflux disease without esophagitis; M54.5 Low back pain; G89.29 Other chronic pain
CPT/HCPCS: 36415; 80053; 81003; 85027; 86593; 93005; 93010